=== PATIENT | male | born 1995 | race Caucasian/White ===

== ENCOUNTER 2020-06-30 13:48 | Emergency (ER) | payer SELFPAY ==
[2020-06-30 13:53] VITALS: BP 138/89; PULSE 91; RESP 18; TEMP 36.9; O2SAT 93; BMI 32.8
--- NOTE | 2020-06-30 14:11 | W.ED.GENADLT ---
HPI - General Adult General: Chief complaint: General Medical Stated complaint: poss cold/sinus infection Time Seen by Provider: 06/30/20 14:00 History of Present Illness: HPI narrative: This patient is a 24-year-old male who presents today with sinus congestion. He says his symptoms started Tuesday and he attributes them to allergies. He has had some nasal congestion and a headache. He denies fever, cough, shortness of breath, myalgias, sweats. He has had no exposures to anyone with COVID. In fact his girlfriend with whom he lives has been tested twice recently due to testing at work. His girlfriend has not had any symptoms but the entire company was tested as a precautionary measure. Onset (ago): day(s) (3) Location: head Associated symptoms: Deny dyspnea Review of Systems ENMT: Reports: nasal discharge, nasal congestion and sinus pain Resp: Denies: dyspnea, productive cough, non-productive cough or wheezing Physical Exam Const: COMMON NORMALS: no acute distress, patient oriented x3, no limitations and alert GENERAL APPEARANCE: cooperative and comfortable HENMT: HEAD & SCALP: normal to inspection FACE & SINUS: normal facial exam Eye: GENERAL EYE: appearance normal, both eyes and all related structures Neck/C-Spine: COMMON NORMALS: supple, no meningeal signs and no JVD Chest: COMMONS NORMALS: normal inspection of the chest Resp: COMMON NORMALS: normal respiratory effort, No use of accessory muscles and clear to auscultation bilaterally AUSCULTATION: clear to auscultation bilaterally Cardio: COMMON NORMALS: no JVD, regular rate, regular rhythm and No murmurs present (Cardio) RATE: regular rate RHYTHM: regular rhythm GI: COMMON NORMALS: Normal to inspection, nondistended, normoactive bowel sounds present, Soft to palpation and non-tender INSPECTION: Yes normal to inspection AUSCULTATION: Yes normoactive bowel sounds PALPATION: Yes Soft to palpation Back/Pelvis: COMMON NORMALS: thoracic and lumbar spine normal to inspection Extremity: COMMON NORMALS: normal to inspection Neuro: COMMON NORMALS: patient oriented x3, moves all extremities, no focal motor deficits and no sensory deficits noted SENSORIUM/ORIENTATION: Yes alert MENINGEAL SIGNS: Yes no meningeal signs Psych: COMMON NORMALS: mental status grossly normal, cooperative and normal affect Skin: COMMON NORMALS: no rashes or lesions noted and turgor normal GENERAL SKIN EXAM: no rashes or lesions noted and turgor normal Course ED course: Patient be released back to work. He only came in because his boss told him he had to come and get checked for COVID. I think he is low risk and does not need testing. Vital Signs: Vital signs: Vital Signs Temperature 98.4 F 06/30/20 13:53 Pulse Rate 91 06/30/20 13:53 Respiratory Rate 18 06/30/20 13:53 Blood Pressure 138/89 06/30/20 13:53 Pulse Oximetry 93 06/30/20 13:53 MDM - General Adult MDM Narrative: Medical decision making narrative: Doubt COVID. Symptoms are not consistent with COVID any has had no known exposures. The other adult in his household has tested negative twice recently as a precautionary test. Treatment for sinus and allergic symptoms. Discharge Plan Discharge Patient Disposition: Home Clinical Impression: Allergic rhinitis Qualifiers: Allergic rhinitis trigger: unspecified Allergic rhinitis seasonality: unspecified Qualified Code(s): J30.9 - Allergic rhinitis, unspecified Condition: Stable Prescriptions: New Flonase Allergy Relief 50 mcg/actuation spray,suspension 1 spray INTRANASAL DAILY Qty: 16 RF: 0 Discharge Orders: Discharge Order (Routine); Ordered 06/30/20 Ordered By: Neena Aldana Discharge Diet: Usual diet Discharge Activity: Resume usual activity Patient Instructions: Allergic Rhinitis (ED) Activity Restrictions/Additional Instructions: You may return to work today. Consider wearing a mask to keep the dust and allergens out of your nose while at work. Use the Flonase nasal spray once or twice daily as needed for symptoms. Return to the emergency department if fever, cough, shortness of breath. 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
[2020-06-30 14:38] VITALS: BP 127/80; PULSE 86; RESP 18; O2SAT 94
== END 2020-06-30 14:39 | disposition home or self-care (01) ==
PROVIDERS: Emergency Provider Emergency Medicine
DX: J30.9 Allergic rhinitis, unspecified (principal)
CPT/HCPCS: 12345; 99281

== ENCOUNTER 2020-10-07 12:55 | Emergency (ER) | payer SELFPAY ==
[2020-10-07 13:01] VITALS: BP 132/83; PULSE 84; RESP 18; TEMP 36.7; O2SAT 98; BMI 30.5
--- NOTE | 2020-10-07 14:07 | PC.NURSE ---
pt refuses medications and blood draw
--- NOTE | 2020-10-07 14:10 | ED_ITS ---
HPI - Nausea/Vomiting/Diarrhea General: Chief complaint: Nausea/Vomiting/Diarrhea Stated complaint: fever/n/v/head ache Time Seen by Provider: 10/07/20 14:07 Source: patient Mode of arrival: ambulatory Limitations: no limitations History of Present Illness: HPI Narrative: 25-year-old male states he has had nausea vomiting low-grade fever over the last day. Patient states his job sent home and he needs a work note for his job as an excuse. States he feels improved currently. He is afebrile here. Denies any abdominal pain. Denies any worsening or improving factors. Associated nausea: Yes Associated symtoms: Reports nausea; Denies chest pain, dysuria or headache(s) Review of Systems Const: Denies: fever(s), chills, body aches or change in appetite Eyes: Denies: blurry vision or eye discomfort ENMT: Denies: throat pain or dental pain Card: Denies: chest pain Resp: Denies: dyspnea GI: Reports: nausea and vomiting; Denies: abdominal pain or diarrhea : Denies: dysuria Musc: Denies: neck pain or back pain Skin/Breast: Denies: rash Neuro: Denies: headache(s) Psych: Denies: depression Dustin/Lymph: Denies: easy bruising All/Imm: Denies: urticaria Physical Exam Const: COMMON NORMALS: no acute distress, patient oriented x3 and healthy appearing HENMT: COMMON NORMALS: normocephalic and atraumatic HEAD & SCALP: normocephalic and atraumatic Eye: COMMON NORMALS: Equal, round and reactive pupils present and EOMs intact bilaterally PUPIL: Yes Equal, round and reactive pupils present Neck/C-Spine: COMMON NORMALS: full ROM and supple Chest: COMMONS NORMALS: normal inspection of the chest and normal palpation of entire chest wall Resp: COMMON NORMALS: normal respiratory effort, No retractions, No use of accessory muscles and clear to auscultation bilaterally AUSCULTATION: clear to auscultation bilaterally Cardio: COMMON NORMALS: regular rate, regular rhythm and No murmurs present (Cardio) RATE: regular rate RHYTHM: regular rhythm GI: COMMON NORMALS: Normal to inspection, nondistended, normoactive bowel sounds present, Soft to palpation, non-tender and no masses PALPATION: Yes Soft to palpation Extremity: COMMON NORMALS: normal to inspection and full ROM Neuro: COMMON NORMALS: patient oriented x3, moves all extremities and no focal motor deficits Psych: COMMON NORMALS: mental status grossly normal, Normal thought process present and cooperative THOUGHT PROCESS: Normal thought process present Skin: COMMON NORMALS: no rashes or lesions noted and no wounds GENERAL SKIN EXAM: no rashes or lesions noted Course Vital Signs: Vital signs: Vital Signs Temperature 98.0 F 10/07/20 13:01 Pulse Rate 84 10/07/20 13:01 Respiratory Rate 18 10/07/20 13:01 Blood Pressure 132/83 10/07/20 13:01 Pulse Oximetry 98 10/07/20 13:01 MDM - Nausea/Vomiting/Diarrhea MDM Narrative: Medical decision making narrative: Patient presents here with vomiting that is improved. He is well-appearing here with no abdominal pain. Patient refused any blood draws and states that he just wants a work note. I recommended blood work but he refused. Will prescribe him Zofran he is return if he changes his mind or has any worsening symptoms. He understands agrees to plan. Discharge Plan Discharge Patient Disposition: Home Clinical Impression: Vomiting Qualifiers: Vomiting type: unspecified Vomiting Intractability: non-intractable Nausea presence: with nausea Qualified Code(s): R11.2 - Nausea with vomiting, unspecified Condition: Stable Prescriptions: New ondansetron 4 mg tablet,disintegrating 4 mg PO Q6H PRN (Reason: nausea and vomiting) Qty: 14 RF: 0 No Action Tylenol 325 mg Tablet 325 mg PO QID PRN (Reason: fever/pain) RF: 0 Discharge Orders: Discharge ED (Routine); Ordered 10/07/20 Ordered By: Margarita Lowry Discharge Diet: Advance as tolerated Discharge Activity: Resume usual activity Patient Instructions: Acute Nausea and Vomiting (ED) Stand Alone Forms: Work/School Release Coding Level of Care Code ED T[employer] for [place]ina [place]
[2020-10-07 14:29] VITALS: BP 134/76; PULSE 107; O2SAT 96
== END 2020-10-07 14:29 | disposition home or self-care (01) ==
PROVIDERS: Emergency Provider Emergency Medicine
DX: R11.2 Nausea with vomiting, unspecified (principal)
CPT/HCPCS: 12345; 99281

== ENCOUNTER → 2020-10-28 11:41 | Outpatient (BNVA) | payer SELFPAY | PROVIDERS: Visit Provider Nurse Practitioner Family | DX: Z20.828 Contact with and (suspected) exposure to other viral communicable diseases (principal) | CPT/HCPCS: 87635 ==

== ENCOUNTER → 2021-09-14 13:23 | Outpatient (BNVA) | payer OTHER, SELFPAY | PROVIDERS: Visit Provider Nurse Practitioner Family | DX: Z20.822 Contact with and (suspected) exposure to COVID-19 (principal) | CPT/HCPCS: 87635 ==